=== PATIENT | female | born 1965 | race African-American/Black ===

== ENCOUNTER 2016-10-02 13:09 | Emergency (ER) | payer SELFPAY ==
[2016-10-02 13:27] VITALS: BP 146/80; PULSE 103; TEMP 98; BMI 30.6
--- NOTE | 2016-10-02 14:51 | PDOC ---
"History of Present Illness - General Chief Complaint: Pain Stated Complaint: LEG PAIN Time Seen by Provider: 10/02/16 13:59 History Source: Patient Exam Limitations: No Limitations - History of Present Illness Initial Comments: 10/02/16 15:25 Chief complaint: B/L THIGH PAIN History of present illness: Patient is a 51-year-old female with no significant medical history here today due to having bilateral anterior thigh pain since falling 2 days ago on to her left buttocks. Patient denies any or hip pain. Patient does have slight discomfort and lateral pelvic area. Patient reports that she took ibuprofen earlier today with no relief of pain. Patient having difficulty walking due to pain. Denies any numbness of thighs. 10/02/16 15:34 Occurred: reports: other (3 DAYS AGO) Severity: reports: moderate Pain Location: reports: lower extremity (B/L THIGHS) Method of Injury: Yes: fall Modifying Factors: improves with: None Loss of Consciousness: no loss of consciousness Associated Symptoms (Fall): other (B/L THIGHS/ANTERIOR PELVIS B/L) Past History - Past Medical History Allergies/Adverse Reactions: Allergies Allergy/AdvReac Type Severity Reaction Status Date / Time No Known Allergies Allergy Verified 10/02/16 13:24 Home Medications: Ambulatory Orders Cyclobenzaprine HCl [Flexeril 10 mg] 10 mg PO Q12H PRN #14 tablet 10/02/16 Naproxen [Naprosyn -] 500 mg PO BID PRN #14 tablet 10/02/16 Suicide Attempt (Hx): No Other medical history: NONE - Surgical History Appendectomy: Yes - Immunization History Td Vaccination: Yes TDAP Vaccination: Yes Immunization Up to Date: Yes - Psycho/Social/Smoking Cessation Hx Anxiety: No Suicidal Ideation: No Smoking Status: No Smoking History: Never smoked Years of Tobacco Use: 3 Have you smoked in the past 12 months: No Number of Cigarettes Smoked Daily: 1 Information on smoking cessation initiated: No Hx Alcohol Use: No Drug/Substance Use Hx: No Substance Use Type: None Review of Systems - Review of Systems Able to Perform ROS?: Yes Constitutional: No: Symptoms Reported HEENTM: No: Symptoms Reported Respiratory: No: Symptoms reported Cardiac (ROS): No: Symptoms Reported ABD/GI: No: Symptoms Reported : No: Symptoms Reported Musculoskeletal: Yes: Joint Pain (B/L ANTERIOR PELVIC PAIN/THIGH ), Muscle Pain (B/L THIGHS) Integumentary: No: Symptoms Reported Neurological: No: Symptoms reported *Physical Exam - Vital Signs Last Vital Signs Temp Pulse Resp BP Pulse Ox 98.0 F 103 H 18 146/80 95 10/02/16 13:24 10/02/16 13:24 10/02/16 13:24 10/02/16 13:24 10/02/16 13:24 - Physical Exam General Appearance: Yes: Appropriately Dressed Neck: negative: Tender, Lymphadenopathy (R), Lymphadenopathy (L), Rigidity, Tender lateral, Tender midline Respiratory/Chest: positive: Lungs Clear, Normal Breath Sounds. negative: Chest Tender, Respiratory Distress Cardiovascular: positive: Regular Rhythm, Regular Rate, S1, S2 Vascular Pulses: Dorsalis-Pedis (R): 4+, Doralis-Pedis (L): 4+ Gastrointestinal/Abdominal: positive: Normal Bowel Sounds, Soft. negative: Tender, Organomegaly, Distended, Guarding, Rebound, Tenderness, Hernia, Mass, Hepatomegaly, Spleenomegaly Musculoskeletal: positive: Normal Inspection. negative: CVA Tenderness, CVA Tenderness (R), CVA Tenderness (L), Muscle Spasm, Vertebral Tenderness Extremity: positive: Normal Capillary Refill, Normal Inspection, Normal Range of Motion, Tender (B/L ANTERIOR THIGHS, ANTERIOR PELVIS ). negative: Swelling Integumentary: positive: Normal Color Neurologic: positive: Alert, Normal Response, Motor Strength 5/5 (LEGS B/L), Respond to painful stimul, Responsive. negative: Numbness, Sensory Deficit ( LEGS B/L ) Deep Tendon Reflexes: Ankle (L): 4+, Ankle (R): 4+, Knee (L): 4+, Knee (R): 4+ Medical Decision Making - Medical Decision Making Patient is a 51-year-old female with no significant medical history here today due to having bilateral anterior thigh pain since falling 2 days ago on to her left buttocks. Patient denies any or hip pain. Patient does have slight discomfort and lateral pelvic area. Patient reports that she took ibuprofen earlier today with no relief of pain. Patient having difficulty walking due to pain. Denies any numbness of thighs. r/o fracture pelvis/left hip PLAN: xray pelvis, left hip negative for fracture toradol 60 mg IM now valium 5 mg po percocet 5mg /'325 mg po now 10/02/16 15:34 Search Terms: Sharonda Black, 1965 Search Date: 10/02/2016 03:34:26 PM The Drug Utilization Report below displays all of the controlled substance prescriptions, if any, that your patient has filled in the last twelve months. The information displayed on this report is compiled from pharmacy submissions to the Department, and accurately reflects the information as submitted by the pharmacies. This report was requested by: Hope Coburn | Reference #: [id number] 10/02/16 15:35 10/02/16 17:53 Charge patient with Naprosyn 500 mg twice a day when necessary pain #14 tablets Flexeril 10 mg every 12 hours as needed for muscle spasms and thighs # 14 tabs given follow up with orthopedist if pain continues *DC/Admit/Observation/Transfer Diagnosis at time of Disposition: Muscle strain of left thigh Qualifiers: Encounter type: initial encounter Qualified Code(s): S76.912A - Strain of unspecified muscles, fascia and tendons at thigh level, left thigh, initial encounter Muscle strain of left thigh Qualifiers: Encounter type: initial encounter Qualified Code(s): S76.912A - Strain of unspecified muscles, fascia and tendons at thigh level, left thigh, initial encounter Muscle strain of right thigh Qualifiers: Encounter type: initial encounter Qualified Code(s): S76.911A - Strain of unspecified muscles, fascia and tendons at thigh level, right thigh, initial encounter Fall Qualifiers: Encounter type: initial encounter Qualified Code(s): W19.XXXA - Unspecified fall, initial encounter - Discharge Dispostion Disposition: HOME - Referrals Referrals: Luis Guzman MD [Staff Physician] - - Patient Instructions Additional Instructions: FOLLOW UP WITH orthopedist if pain continues NEXT WEEK YOU MAY TAKE ACETAMINOPHEN IN BETWEEN DOSE OF NAPROSYN IF PAIN PERSISTS, DO NOT TAKE ADVIL, ALEVE, OR IBUPROFEN, MOTRIN Rest and elevate her legs as much as possible minimize ambulation Return to emergency room if symptoms worsen Patient voiced understanding of discharge instructions and all questions were answered - Post Discharge Activity Work/School Note: Back to Work"
[2016-10-02] MEDS ORDERED: KETOROLAC TROMETHAMINE 60 MG/2 ML VIAL IM ONE (14:52)
[2016-10-02] MEDS ORDERED: KETOROLAC TROMETHAMINE 60 MG/2 ML VIAL ONE (14:54)
[2016-10-02] MEDS ORDERED: diazePAM 5 MG TABLET PO ONE (15:52)
[2016-10-02] MEDS ORDERED: diazePAM 5 MG TABLET ONE (15:53)
[2016-10-02] MEDS ORDERED: OXYCODONE/APAP 5/325MG COMBO TABLET PO ONE (16:25)
[2016-10-02] MEDS ORDERED: OXYCODONE/APAP 5/325MG COMBO TABLET ONE (16:32)
== END 2016-10-02 18:10 | disposition home or self-care (01) ==
LOC: JERFT 13:09
PROC: 3E0233Z Introduction of Anti-inflammatory into Muscle, Percutaneous Approach (ICD-10-PCS; principal; 2016-10-02)
DX: S76.911A Strain of unspecified muscles, fascia and tendons at thigh level, right thigh, initial encounter (principal); S76.912A Strain of unspecified muscles, fascia and tendons at thigh level, left thigh, initial encounter; W18.39XA Other fall on same level, initial encounter; Y93.89 Activity, other specified; Y92.89 Other specified places as the place of occurrence of the external cause
CPT/HCPCS: 73523-TC; 99281-25

== ENCOUNTER 2016-10-03 01:05 | Emergency (ER) | payer SELFPAY ==
[2016-10-03 01:49] VITALS: BMI 30.7
[2016-10-03] MEDS ORDERED: diazePAM 5 MG TABLET PO ONE (01:59)
[2016-10-03] MEDS ORDERED: OXYCODONE/APAP 5/325MG COMBO TABLET PO ONE ×3 (02:04→07:45)
[2016-10-03] MEDS ORDERED: diazePAM 5 MG TABLET ONE (02:06)
[2016-10-03] MEDS ORDERED: OXYCODONE/APAP 5/325MG COMBO TABLET ONE ×2 (02:06→07:47)
[2016-10-03 02:32] LABS: BASOPHIL 0.7 % (0-2.0); EOSINOPHIL 0.8 % (0-4.5); MCHC 32.9 g/dl (32.0-36.0); MEAN CELL VOLUME 91.3 fl (80-96); NEUTROPHILS 72.5 % (42.8-82.8); PLATELET COUNT 272 K/MM3 (134-434); RDW 13.8 % (11.6-15.6); WHITE BLOOD COUNT 11.8 K/mm3 (4.0-10.0)
[2016-10-03 03:09] LABS: ANION GAP 8 (8-16); BILIRUBIN,TOTAL 0.6 mg/dL (0.2-1.0); CALCIUM 8.9 mg/dL (8.5-10.1); CO2 26 mmol/L (21-32); CREATININE 0.7 mg/dL (0.55-1.02); GLUCOSE,RANDOM 109 mg/dL (74-106); SGOT/AST 16 U/L (15-37); SGPT/ALT 33 U/L (12-78); TOT PROT 7.6 g/dl (6.4-8.2)
[2016-10-03 03:10] LABS: ALK PHOS 105 U/L (45-117)
[2016-10-03] MEDS ORDERED: SODIUM CHLORIDE 0.9% 1000 ML INFUS.BAG IV ONE (03:40)
[2016-10-03] MEDS ORDERED: KETOROLAC TROMETHAMINE 30 MG/1 ML VIAL IVPUSH ONE (03:40)
--- NOTE | 2016-10-03 03:40 | PDOC ---
History of Present Illness - General History Source: Patient, Family, Old Records Exam Limitations: No Limitations - History of Present Illness Initial Comments: 10/03/16 03:44 History of present illness: Patient is a 51-year-old female with past medical history of BIBA today with bilateral leg pain since falling on Wednesday. The patient notes that she came in yesterday for the same symptoms. The patient states that she is unable to walk secondary to her pain. She denies any back pain. <Miguel A Gross - Last Filed: 10/03/16 03:44> <Laura Johnson - Last Filed: 10/03/16 06:52> - General Chief Complaint: Pain, Acute Stated Complaint: LEG PAIN Time Seen by Provider: 10/03/16 01:37 Past History <Miguel A Gross - Last Filed: 10/03/16 03:44> - Past Medical History Suicide Attempt (Hx): No - Surgical History Appendectomy: Yes - Immunization History Td Vaccination: Yes TDAP Vaccination: Yes Immunization Up to Date: Yes - Psycho/Social/Smoking Cessation Hx Anxiety: No Suicidal Ideation: No Smoking Status: No Smoking History: Never smoked Years of Tobacco Use: 3 Have you smoked in the past 12 months: No Number of Cigarettes Smoked Daily: 1 Information on smoking cessation initiated: No Hx Alcohol Use: No Drug/Substance Use Hx: No Substance Use Type: None <Laura Johnson - Last Filed: 10/03/16 06:52> - Past Medical History Allergies/Adverse Reactions: Allergies Allergy/AdvReac Type Severity Reaction Status Date / Time No Known Allergies Allergy Verified 10/02/16 13:24 Home Medications: Ambulatory Orders Cyclobenzaprine HCl [Flexeril 10 mg] 10 mg PO Q12H PRN #14 tablet 10/02/16 Naproxen [Naprosyn -] 500 mg PO BID PRN #14 tablet 10/02/16 Oxycodone HCl/Acetaminophen [Percocet 5-325 mg Tablet] 1 tab PO Q6H PRN #20 tablet MDD 4 10/03/16 Review of Systems - Review of Systems Able to Perform ROS?: Yes Comments:: 10/03/16 03:44 GENERAL/CONSTITUTIONAL: No fever or chills. No weakness. HEAD, EYES, EARS, NOSE AND THROAT: No change in vision. No ear pain or discharge. No sore throat. GASTROINTESTINAL: No nausea, vomiting, diarrhea or constipation. GENITOURINARY: No dysuria, frequency, or change in urination. CARDIOVASCULAR: No chest pain or shortness of breath. RESPIRATORY: No cough, wheezing, or hemoptysis. MUSCULOSKELETAL: (+) Bilateral leg pain. No neck or back pain. SKIN: No rash NEUROLOGIC: No headache, vertigo, loss of consciousness, or change in strength/ sensation. ENDOCRINE: No increased thirst. No abnormal weight change. HEMATOLOGIC/LYMPHATIC: No anemia, easy bleeding, or history of blood clots. ALLERGIC/IMMUNOLOGIC: No hives or skin allergy. <Miguel A Gross - Last Filed: 10/03/16 03:44> *Physical Exam - Vital Signs Last Vital Signs Temp Pulse Resp BP Pulse Ox 98.6 F 96 H 18 130/79 100 10/03/16 01:43 10/03/16 01:43 10/03/16 01:43 10/03/16 01:43 10/03/16 01:43 - Physical Exam Comments: 10/03/16 03:44 GENERAL: Awake, alert, and fully oriented, in no acute distress HEAD: No signs of trauma EYES: PERRLA, EOMI, sclera anicteric, conjunctiva clear ENT: Auricles normal inspection, nares patent, Moist mucosa NECK: Normal ROM, supple, no lymphadenopathy, JVD, or masses LUNGS: Breath sounds equal, clear to auscultation bilaterally. No wheezes, and no crackles HEART: Regular rate and rhythm, normal S1 and S2, no murmurs, rubs or gallops ABDOMEN: Soft, nontender, normoactive bowel sounds. No guarding, no rebound. No masses EXTREMITIES: Normal range of motion, no edema. No clubbing or cyanosis. No cords, erythema, or tenderness NEUROLOGICAL: Normal speech SKIN: Warm, Dry, normal turgor, no rashes or lesions noted. <Miguel A Gross - Last Filed: 10/03/16 03:44> - Vital Signs Last Vital Signs Temp Pulse Resp BP Pulse Ox 98.6 F 96 H 18 130/79 100 10/03/16 01:43 10/03/16 01:43 10/03/16 01:43 10/03/16 01:43 10/03/16 01:43 <Laura Johnson - Last Filed: 10/03/16 06:52> ED Treatment Course - LABORATORY CBC & Chemistry Diagram: 10/03/16 02:20 10/03/16 02:20 - ADDITIONAL ORDERS Additional order review: Laboratory Results 10/03/16 02:20 Sodium 136 Potassium 3.9 Chloride 102 Carbon Dioxide 26 Anion Gap 8 BUN 9 Creatinine 0.7 Creat Clearance w eGFR > 60 Random Glucose 109 H Calcium 8.9 Total Bilirubin 0.6 AST 16 ALT 33 Alkaline Phosphatase 105 Creatine Kinase 114 Total Protein 7.6 Albumin 4.0 10/03/16 02:20 RBC 3.86 MCV 91.3 MCHC 32.9 RDW 13.8 MPV 9.0 Neutrophils % 72.5 Lymphocytes % 15.2 Monocytes % 10.8 H Eosinophils % 0.8 Basophils % 0.7 - Medications Given in the ED: ED Medications Discontinued Medications Generic Name Dose Route Start Last Admin Trade Name Freq PRN Reason Stop Dose Admin Diazepam 5 mg 10/03/16 01:59 10/03/16 02:27 Valium - PO 10/03/16 02:00 5 mg ONCE ONE Administration Oxycodone/Acetaminophen 2 combo 10/03/16 02:04 10/03/16 02:30 Percocet 5/325 - PO 10/03/16 02:05 Not Given ONCE ONE Oxycodone/Acetaminophen 1 combo 10/03/16 02:27 10/03/16 02:29 Percocet 5/325 - PO 10/03/16 02:28 1 combo ONCE ONE Administration <Miguel A Gross - Last Filed: 10/03/16 03:44> - LABORATORY CBC & Chemistry Diagram: 10/03/16 02:20 10/03/16 02:20 - ADDITIONAL ORDERS Additional order review: Laboratory Results 10/03/16 02:20 Sodium 136 Potassium 3.9 Chloride 102 Carbon Dioxide 26 Anion Gap 8 BUN 9 Creatinine 0.7 Creat Clearance w eGFR > 60 Random Glucose 109 H Calcium 8.9 Total Bilirubin 0.6 AST 16 ALT 33 Alkaline Phosphatase 105 Creatine Kinase 114 Total Protein 7.6 Albumin 4.0 10/03/16 02:20 RBC 3.86 MCV 91.3 MCHC 32.9 RDW 13.8 MPV 9.0 Neutrophils % 72.5 Lymphocytes % 15.2 Monocytes % 10.8 H Eosinophils % 0.8 Basophils % 0.7 - Medications Given in the ED: ED Medications Discontinued Medications Generic Name Dose Route Start Last Admin Trade Name Daylin PRN Reason Stop Dose Admin Diazepam 5 mg 10/03/16 01:59 10/03/16 02:27 Valium - PO 10/03/16 02:00 5 mg ONCE ONE Administration Oxycodone/Acetaminophen 2 combo 10/03/16 02:04 10/03/16 02:30 Percocet 5/325 - PO 10/03/16 02:05 Not Given ONCE ONE Oxycodone/Acetaminophen 1 combo 10/03/16 02:27 10/03/16 02:29 Percocet 5/325 - PO 10/03/16 02:28 1 combo ONCE ONE Administration <Laura Johnson - Last Filed: 10/03/16 06:52> Medical Decision Making - Medical Decision Making 10/03/16 03:36 51 yo F with h/o depression, HTN her s/p fall few days ago, now c/o severe bilat thigh pain. pt states unable to walk due to pain. was seen earlier in the day in ED , evaluated with xray hip which was negative. and dc with naproxen. pt states she thought she could walk when she left, but left in wheelchair, and head to get help into the house. since pt has not been able to walk. no back pain. no f/c . pain severe bilat thighs. no cough no cp. pt states she can't go home because she can not move around house, and daughter who lives with her has to work during the day. on exam awake alert lungs clear . heart rrr n mrg. abd soft NT ND. ext WWP. no spinal tenderness. bilat anterior thigh ttp, hip FROM bilaterally. knees FROM bilaterally. on exam pt 5/5 movement hip ext/ flex (poor effort however) sensation intact bilaterally. plan: differential myalgia, muscle strain, plan labs cpk, pain control muslce relaxers. trial of ambulation. 10/03/16 05:33 pt labs unremarkable. feeling slightly improved following pain medication. will require transportatio home in an ambulette. daughter called for tile picker. Jed Black [phone] . phone not taking incoming calls. pt tried calling son, unable to reach and finacee. will await for ambulette in the am at 8 a. 10/03/16 06:46 istop report, no h/o narcotic recent prescriptions, will prescribe percocet in addition to naproxen from prior visit and the flexeril 10/03/16 06:52 pt seen and examined by hospitalist. at this point pt does not meet criteria for admission. will dc with stronger pain mediciation and followup with pcp. given work note f <Laura Johnson - Last Filed: 10/03/16 06:52> *DC/Admit/Observation/Transfer - Attestations Scribe Attestion: 10/03/16 03:44 Documentation prepared by Miguel A Gross, acting as biomedical manager for Laura Johnson MD. <Miguel A Gross - Last Filed: 10/03/16 03:44> - Discharge Dispostion Admit: No <Laura Johnson - Last Filed: 10/03/16 06:52> Diagnosis at time of Disposition: Muscle strain of left thigh, Muscle strain of right thigh - Discharge Dispostion Disposition: HOME Condition at time of disposition: Improved - Prescriptions Prescriptions: Oxycodone HCl/Acetaminophen [Percocet 5-325 mg Tablet] 1 tab PO Q6H PRN #20 tablet MDD 4 PRN Reason: Pain - Patient Instructions Printed Discharge Instructions: Muscle Strain Additional Instructions: you can take naproxen twice daily as previously prescribed for your pain. you can also take percocet one every 6 hours as needed for pain. you should not drive after taking medication and do not take at same time as the flexeril. follow up with your primary doctor. you should rest for one week . return for any problems or concerns. - Post Discharge Activity Work/School Note: Back to Work
[2016-10-03] MEDS ORDERED: KETOROLAC TROMETHAMINE 30 MG/1 ML VIAL ONE (03:42)
[2016-10-03 08:02] VITALS: BP 128/79; PULSE 83; TEMP 98
== END 2016-10-03 08:20 | disposition home or self-care (01) ==
LOC: JER 01:05
PROC: 3E0333Z Introduction of Anti-inflammatory into Peripheral Vein, Percutaneous Approach (ICD-10-PCS; principal; 2016-10-03)
DX: S76.812D Strain of other specified muscles, fascia and tendons at thigh level, left thigh, subsequent encounter (principal); S76.811D Strain of other specified muscles, fascia and tendons at thigh level, right thigh, subsequent encounter; W18.39XD Other fall on same level, subsequent encounter
CPT/HCPCS: 36415; 80053; 82550; 85025; 99283-25

== ENCOUNTER 2018-09-15 12:33 | Emergency (ER) | payer SELFPAY | END 2018-09-15 14:56 | disposition home or self-care (01) | LOC: JERFT 12:33 ==

== ENCOUNTER 2021-02-10 16:37 | Emergency (ER) | payer OTHER ==
[2021-02-10 16:45] VITALS: BP 188/98; PULSE 80; TEMP 97.7; BMI 31.4
[2021-02-10 20:07] LABS: EOS % 1.9 % (0-4.5); HEMATOCRIT 36.5 % (32.4-45.2); HEMOGLOBIN 12.3 GM/dL (10.7-15.3); LYMPH % 46.7 % (8-40); MCH 28.7 pg (25.7-33.7); MCHC 33.6 g/dl (32.0-36.0); MEAN CELL VOLUME 85.2 fl (80-96); MEAN PLT VOLUME 9.3 fl (7.5-11.1); MONO % 7.8 % (3.8-10.2); NEUT % 41.6 % (42.8-82.8); PLATELET COUNT 379 10^3/uL (134-434); RBC 4.29 M/mm3 (3.60-5.2); RDW 18.9 % (11.6-15.6)
[2021-02-10 20:16] LABS: INR 0.92 (0.83-1.09); PROTHROMBIN TIME (PATIENT) 10.7 SEC (9.7-13.0)
[2021-02-10 20:22] LABS: CHLORIDE 108 mmol/L (98-107); SODIUM 140 mmol/L (136-145)
[2021-02-10 20:24] LABS: ACTIVATED PTT 23.7 SECONDS (25.2-36.5); CALCIUM 9.6 mg/dL (8.5-10.1)
[2021-02-10 20:25] LABS: ALBUMIN 3.6 g/dl (3.4-5.0); ANION GAP 8 MMOL/L (8-16); BLOOD UREA NITROGEN 13.2 mg/dL (7-18); CO2 25 mmol/L (21-32); GLUCOSE,RANDOM 112 mg/dL (74-106); LIPASE 165 U/L (73-393)
[2021-02-10 20:28] LABS: CREATININE 0.7 mg/dL (0.55-1.3); SGOT/AST 72 U/L (15-37); SGPT/ALT 67 U/L (13-61)
[2021-02-10 20:29] LABS: BILIRUBIN,TOTAL 0.4 mg/dL (0.2-1); TOT PROT 8.5 g/dl (6.4-8.2)
[2021-02-10 20:30] LABS: ALK PHOS 129 U/L (45-117)
[2021-02-10] MEDS ORDERED: ACETAMINOPHEN 325 MG TABLET (FP) PO ONE (20:54)
[2021-02-10] MEDS ORDERED: ACETAMINOPHEN 325 MG TABLET (FP) ONE (21:05)
[2021-02-10 23:02] LABS: BLOOD UREA NITROGEN 12.2 mg/dL (7-18); CALCIUM 7.9 mg/dL (8.5-10.1); CREATININE 0.6 mg/dL (0.55-1.3)
== END 2021-02-11 00:09 | disposition home or self-care (01) ==
LOC: JER 16:37
DX: K62.5 Hemorrhage of anus and rectum (principal); K76.0 Fatty (change of) liver, not elsewhere classified; K86.2 Cyst of pancreas; E27.8 Other specified disorders of adrenal gland
CPT/HCPCS: 36415; 71046-TC-FY; 74177-TC; 76705-TC; 80048; 80053; 82272; 82550; 82553; 83690; 84484; 85025; 85610; 85730; 93005; 93010; 99285-25; Q9967

== ENCOUNTER 2021-09-30 11:06 | Emergency (ER) | payer OTHER ==
[2021-09-30 11:26] VITALS: BP 176/106; TEMP 98.5; BMI 32.3
[2021-09-30] MEDS ORDERED: LIDOCAINE HCL 1%, 10 MG/ML (20ML VIAL) ONE (13:01)
[2021-09-30] MEDS ORDERED: CEPHALEXIN MONOHYDRATE 500 MG CAPSULE (UD) PO ONE (13:26)
[2021-09-30 13:27] VITALS: PULSE 97
[2021-09-30] MEDS ORDERED: CEPHALEXIN MONOHYDRATE 500 MG CAPSULE (UD) ONE (13:28)
== END 2021-09-30 13:58 | disposition home or self-care (01) ==
LOC: JERFT 11:06 → JER 11:06 → JERFT 13:58
DX: N61.1 Abscess of the breast and nipple (principal)
CPT/HCPCS: 87070; 87186; 87205; 99283-25

== ENCOUNTER 2023-03-22 09:55 | Emergency (ER) | payer OTHER ==
[2023-03-22 10:03] VITALS: BMI 32.3
[2023-03-22 10:30] VITALS: BP 155/73; PULSE 97; RESP 16; TEMP 99.3
[2023-03-22] MEDS ORDERED: IBUPROFEN 400 MG TABLET (FP) PO ONE ×2 (10:56→11:16)
[2023-03-22 11:25] LABS: BASO % 0.5 % (0-2.0); EOS % 0.6 % (0-4.5); HEMATOCRIT 35.3 % (32.4-45.2); HEMOGLOBIN 11.4 GM/dL (10.7-15.3); LYMPH % 12.9 % (8-40); MCH 28.5 pg (25.7-33.7); MCHC 32.4 g/dl (32.0-36.0); MEAN CELL VOLUME 87.9 fl (80-96); MEAN PLT VOLUME 9.2 fl (7.5-11.1); MONO % 11.9 % (3.8-10.2); NEUT % 74.1 % (42.8-82.8); PLATELET COUNT 190 10^3/uL (134-434); RBC 4.01 M/mm3 (3.60-5.2); RDW 16.3 % (11.6-15.6); WHITE BLOOD COUNT 4.6 K/mm3 (4.0-10.0)
[2023-03-22 11:33] LABS: INR 1.1 (0.83-1.09); PROTHROMBIN TIME (PATIENT) 12.8 SEC (9.7-13.0)
[2023-03-22 11:36] LABS: ACTIVATED PTT 27.7 SECONDS (25.2-36.5)
[2023-03-22 11:41] LABS: POTASSIUM 3.6 mmol/L (3.5-5.1)
[2023-03-22 11:44] LABS: CALCIUM 8.5 mg/dL (8.5-10.1)
[2023-03-22 11:45] LABS: ALBUMIN 3.6 g/dl (3.4-5.0); BLOOD UREA NITROGEN 9.6 mg/dL (7-18)
[2023-03-22 11:48] LABS: CREATININE 0.8 mg/dL (0.55-1.3)
[2023-03-22 11:51] LABS: BILIRUBIN,TOTAL 0.5 mg/dL (0.2-1); TOT PROT 7.5 g/dl (6.4-8.2)
== END 2023-03-22 14:51 | disposition home or self-care (01) ==
LOC: JER 09:55
DX: R07.9 Chest pain, unspecified (principal); R06.09 Other forms of dyspnea; J10.1 Influenza due to other identified influenza virus with other respiratory manifestations; Z20.822 Contact with and (suspected) exposure to COVID-19
CPT/HCPCS: 0241U-QW; 36415; 71045-TC-FY; 71275-TC; 80053; 84484; 85025; 85379; 85610; 85730; 93005; 93010; 99285-25; Q9967